=== PATIENT | female | born 1985 | race Caucasian/White ===

== ENCOUNTER 2019-12-17 19:22 | Emergency (ER) | payer OTHER ==
--- NOTE | 2019-12-17 20:43 | ED Physician Documentation ---
History of Present Illness - Stated complaint Stated Complaint: COUGH,HEAVY CHEST - Chief complaint Chief Complaint: Heent - History obtained from History obtained from: Patient (The patient is a 34-year-old female who presents with cough and chest congestion for 2 days.She denies any recent travel outside the country and she denies any history of chronic medical illness denies any immunodeficiency she tried taking Mucinex once today but presents today with cough and fever she has not taken any Tylenol or ibuprofen prior to arrival.She denies any chest pain, headaches, neck pain or rashes.) Review of Systems Constitutional: reports: Fever Eyes: reports: Reviewed and negative Ears: reports: Reviewed and negative Nose: reports: Reviewed and negative Throat: reports: Reviewed and negative Cardiac: reports: Reviewed and negative Respiratory: reports: Cough GI: reports: Reviewed and negative : reports: Reviewed and negative Skin: reports: Reviewed and negative Musculoskeletal: reports: Reviewed and negative Neurologic: reports: Reviewed and negative Psychiatric: reports: Reviewed and negative Endocrine: reports: Reviewed and negative Immunocompromised: reports: Reviewed and negative PD PAST MEDICAL HISTORY - Past Medical History Past Medical History: No - Past Surgical History 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 - Present Medications Home Medications: Ambulatory Orders Medication Instructions Recorded Confirmed Azithromycin 250 mg PO DAILY 4 Days #4 tablet 12/17/19 - Allergies Allergies/Adverse Reactions: Allergies Allergy/AdvReac Type Severity Reaction Status Date / Time No Known Drug Allergies Allergy Verified 12/17/19 19:31 - Social History Does the pt smoke?: No Smoking Status: Never smoker Does the pt drink ETOH?: Yes Does the pt have substance abuse?: No - Immunizations Immunizations are current?: No PD ED PE NORMAL - Vitals Vital signs reviewed: Yes - General General: Alert and oriented X 3, No acute distress - HEENT HEENT: Atraumatic, PERRL, EOMI, Ears normal, Moist mucous membranes, Pharynx benign, Dentition benign - Neck Neck: Supple, no meningeal sign, No JVD - Cardiac Cardiac: RRR, No murmur, Strong equal pulses - Respiratory Respiratory: No respiratory distress, Clear bilaterally, Other (coughing but no resp distress) - Abdomen Abdomen: Normal bowel sounds, Soft, Non tender, Non distended, No organomegaly - Back Back: No CVA TTP - Derm Derm: Normal color, Warm and dry, No rash - Extremities Extremities: No deformity - Neuro Neuro: Alert and oriented X 3 - Psych Psych: Normal mood, Normal affect Results - Vitals Vitals: Vital Signs - 24 hr 12/17/19 12/17/19 12/17/19 19:31 21:17 21:18 Temperature 38.0 C H Heart Rate 130 H 90 124 H Respiratory 16 20 20 Rate Blood Pressure 140/90 H 129/84 H O2 Saturation 92 94 Oxygen O2 Source Room air - Labs Labs: Laboratory Tests 12/17/19 12/17/19 21:12 21:12 Influenza A (Rapid) Negative Influenza B (Rapid) Negative Group A Strep Rapid Negative PD MEDICAL DECISION MAKING - ED course Complexity details: re-evaluated patient (patient feels better And is requesting to be discharged home patient updated on results of imaging, patient will be treated with azithromycin For pneumonia.), other (Patient presents with flulike illness, no recent travel outside the country she is nontoxic and nonseptic appearing on exam patient is refusingAny intravenous fluids.The patient will be given a treatment with albuterol, a two-view chest x-ray oral Tylenol and p.o. challenge and reevaluated.) Departure - Departure Disposition: 01 Home, Self Care Clinical Impression: Fever Qualifiers: Fever type: unspecified Qualified Code(s): R50.9 - Fever, unspecified Pneumonia Qualifiers: Pneumonia type: due to unspecified organism Laterality: unspecified laterality Lung location: unspecified part of lung Qualified Code(s): J18.9 - Pneumonia, unspecified organism Condition: Good Instructions: Pneumonia Dc Follow-Up: Rd Martin ARNP [Primary Care Provider] - Tomorrow Prescriptions: Azithromycin 250 mg PO DAILY 4 Days #4 tablet Discharge Date/Time: 12/17/19 21:46
[2019-12-17] MEDS ORDERED: ACETAMINOPHEN 325 MG TABLET PO STA (20:44)
[2019-12-17] MEDS ORDERED: ALBUTEROL NEB 2.5 MG/3 ML INH STA (20:52)
[2019-12-17 21:19] VITALS: BP 129/84
[2019-12-17 21:31] LABS: RAPID STREP SCREEN Negative (Negative)
--- NOTE | 2019-12-17 21:33 | XRAY Report ---
Reason: cough Procedure Date: 12/17/2019 Accession Number: [id number] / [id number] Procedure: XR - Chest 2 View X-Ray CPT Code: 38449 Final Report FULL RESULT: EXAM: CHEST RADIOGRAPHY EXAM DATE: 12/17/2019 09:07 PM. CLINICAL HISTORY: Cough. COMPARISON: None. TECHNIQUE: 2 views. FINDINGS: Lungs/Pleura: Hazy left lower lung zone opacity. No pleural effusion. No pneumothorax. Mediastinum: Heart and mediastinal contours are unremarkable. Other: None. IMPRESSION: Hazy left lower lung zone opacity. Atypical infection not excluded. RADIA
[2019-12-17] MEDS ORDERED: AZITHROMYCIN 250 MG TABLET PO STA (21:39)
== END 2019-12-17 21:46 | disposition home or self-care (01) ==
LOC: ED 19:22
DX: J18.9 Pneumonia, unspecified organism (principal)
CPT/HCPCS: 71046; 87070; 87275; 87276; 87430; 94640; 99284; A9270

== ENCOUNTER 2020-12-28 13:06 | Emergency (ER) | payer OTHER ==
--- NOTE | 2020-12-28 13:28 | ED Physician Documentation ---
History of Present Illness - Stated complaint Stated Complaint: FEMALE - Chief complaint Chief Complaint: UTI - Additonal information Additional information: 35-year-old female presents to the emergency department for dysuria urgency and frequency. Also some hematuria that she notices this morning. She also reports some vaginal discharge and has concerns that she may have a STD. She reports that her was on a business trip recently and admitted to infidelity and he has been having some genital discomfort as well. No flank pain or vomiting. Patient would like to know she has a urinary tract infection but would like to b e empirically treated for STI while here in the emergency department. 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 - Present Medications Home Medications: Ambulatory Orders Medication Instructions Recorded Confirmed Dextroamphetamine/Amphetamine 20 mg PO DAILY 12/28/20 12/28/20 [Adderall Xr 20 mg Capsule] Loratadine [Claritin] 10 mg PO DAILY 12/28/20 12/28/20 - Allergies Allergies/Adverse Reactions: Allergies Allergy/AdvReac Type Severity Reaction Status Date / Time No Known Drug Allergies Allergy Verified 12/28/20 13:15 - Social History Does the pt smoke?: No Smoking Status: Never smoker Does the pt drink ETOH?: Yes Does the pt have substance abuse?: No - Immunizations Immunizations are current?: No PD ED PE NORMAL - General General: Alert and oriented X 3, No acute distress - HEENT HEENT: Atraumatic, Ears normal - Neck Neck: Supple, no meningeal sign, No adenopathy - Cardiac Cardiac: RRR, No murmur - Respiratory Respiratory: No respiratory distress - Abdomen Abdomen: Normal bowel sounds, Soft - Female Female : Deferred - Back Back: No CVA TTP - Derm Derm: Normal color, Warm and dry - Extremities Extremities: No deformity - Neuro Neuro: Alert and oriented X 3 Eye Opening: Spontaneous Motor: Obeys Commands Verbal: Oriented GCS Score: 15 Results - Vitals Vitals: Vital Signs - 24 hr 12/28/20 13:16 Temperature 36.7 C Heart Rate 98 Respiratory 18 Rate Blood Pressure 158/87 H O2 Saturation 100 Oxygen O2 Source Room air - Labs Labs: Microbiology 12/28/20 13:40 Wet Prep - Final Vaginal Laboratory Tests 12/28/20 12/28/20 13:42 13:42 Urine Color LIGHT YELLOW Urine Clarity CLEAR Urine pH 7.0 Ur Specific [place] 1.010 Urine Protein NEGATIVE Urine Glucose (UA) NEGATIVE Urine Ketones NEGATIVE Urine Occult Blood SMALL H Urine Nitrite NEGATIVE Urine Bilirubin NEGATIVE Urine Urobilinogen 0.2 (NORMAL) Ur Leukocyte Esterase NEGATIVE Urine RBC 6-10 H Urine WBC 0-3 Ur Squamous Epith Cells NONE SEEN Urine Bacteria None Seen Urine Culture Comments NOT INDICATED Urine HCG, Qual NEGATIVE PD MEDICAL DECISION MAKING - ED course Complexity details: re-evaluated patient, d/w patient ED course: 35-year-old female presents the emergency department for evaluation of hematuria vaginal discharge and discomfort when she urinates. She does have concerned that her partner may have recently been unfaithful when he was away for work. He is also reporting some discomfort in the groin area. Today her urine shows a small amount of hematuria but no other findings to suggest a urinary tract infection. We did do a screening GC which is pending. Wet prep shows no obvious concerns. However patient is requesting treatment for GC empirically therefore we have given her ceftriaxone and azithromycin. She is cautioned that her partner should be tested and treated before they engage in sexual intercourse again. We will do for case of oral antibiotics unless urine culture is positive. Departure - Departure Disposition: 01 Home, Self Care Clinical Impression: Screening for STD (sexually transmitted disease) Hematuria Qualifiers: Hematuria type: other microscopic Qualified Code(s): R31.29 - Other microscopic hematuria; R31.2 - Other microscopic hematuria Condition: Stable Record reviewed to determine appropriate education?: Yes Comments: Rita you were seen today for some blood in your urine as well as concerns that you may have a sexually transmitted infection. Your urine is being sent for culture though right now it does not suggest an infection though there is a small amount of blood in it. We are also testing you for chlamydia and gonorrhea but have treated you as though you could have the infection with an injection of an antibiotic as well as an oral antibiotic here in the ER. Your partner should be tested and treated for sexually transmitted disease before you engage in sexual intercourse again. We will call you if the urine culture is positive or if the STD testing is positive. We should have these results back in the next 24 to 48 hours.
[2020-12-28 13:54] LABS: BILIRUBIN,URINE NEGATIVE (NEGATIVE); GLUCOSE, URINE (UA) NEGATIVE (NEGATIVE); KETONES,URINE (UA) NEGATIVE (NEGATIVE); LEUKOCYTE ESTERASE, URINE NEGATIVE (NEGATIVE); NITRITE,URINE NEGATIVE (NEGATIVE); OCCULT BLOOD,URINE SMALL (NEGATIVE); PROTEIN,URINE NEGATIVE (NEGATIVE); UROBILINOGEN,URINE 0.2 (NORMAL) E.U./dL (NORMAL)
[2020-12-28 13:56] LABS: CLARITY,URINE CLEAR (CLEAR)
[2020-12-28 13:57] LABS: HCG UR QUAL NEGATIVE
[2020-12-28] MEDS ORDERED: cefTRIAXone 250 MG VIAL IM STA (14:10)
[2020-12-28] MEDS ORDERED: AZITHROMYCIN 250 MG TABLET PO STA (14:10)
[2020-12-28] MEDS ORDERED: LIDOCAINE 1% 2 ML VIAL MC ONE (14:10)
[2020-12-28 14:15] LABS: BACTERIA,URINE None Seen /HPF (None Seen); SQUAMOUS EPITHELIAL CELL,UR NONE SEEN (<= Few); WBC,URINE 0-3 /HPF (0-5)
[2020-12-28 15:00] VITALS: BP 151/98
[2020-12-28 20:47] LABS: CHLAMYDIA TRACHOMATIS DNA NEGATIVE (NEGATIVE); NEISSERIA GONORRHOEAE DNA NEGATIVE (NEGATIVE); TRICHOMONAS VAGINALIS DNA NEGATIVE (NEGATIVE)
== END 2020-12-28 15:00 | disposition home or self-care (01) ==
LOC: ED 13:06
DX: Z11.3 Encounter for screening for infections with a predominantly sexual mode of transmission (principal); N89.8 Other specified noninflammatory disorders of vagina; R31.9 Hematuria, unspecified
CPT/HCPCS: 81001; 81025; 87210; 87491; 87591; 87661; 96372; 99283; 99284; A9270; 87086

== ENCOUNTER 2020-12-30 10:58 | Emergency (ER) | payer OTHER ==
[2020-12-30 11:16] LABS: BILIRUBIN,URINE NEGATIVE (NEGATIVE); GLUCOSE, URINE (UA) NEGATIVE (NEGATIVE); KETONES,URINE (UA) NEGATIVE (NEGATIVE); LEUKOCYTE ESTERASE, URINE TRACE (NEGATIVE); NITRITE,URINE NEGATIVE (NEGATIVE); OCCULT BLOOD,URINE MODERATE (NEGATIVE); PROTEIN,URINE NEGATIVE (NEGATIVE); UROBILINOGEN,URINE 0.2 (NORMAL) E.U./dL (NORMAL)
[2020-12-30 11:17] LABS: CLARITY,URINE HAZY (CLEAR); HCG UR QUAL NEGATIVE
[2020-12-30 11:22] LABS: BACTERIA,URINE Rare /HPF (None Seen); SQUAMOUS EPITHELIAL CELL,UR MOD Squamous (<= Few)
[2020-12-30 11:32] LABS: BASOPHILS % (AUTO) 0.5 %; EOSINOPHILS # (AUTO) 0.2 10^3/uL (0.0-0.7); EOSINOPHILS % (AUTO) 3.1 %; HCT - HEMATOCRIT 42.4 % (37.0-47.0); HGB - HEMOGLOBIN 14.3 g/dL (12.0-16.0); LYMPHOCYTES # (AUTO) 2.1 10^3/uL (1.5-3.5); LYMPHOCYTES % (AUTO) 27.5 %; MEAN CORPUSCULAR HEMOGLOBIN 30.2 pg (27.0-31.0); MEAN CORPUSCULAR HGB CONC 33.7 g/dL (32.0-36.0); MEAN CORPUSCULAR VOLUME 89.5 fL (81.0-99.0); MEAN PLATELET VOLUME 9.8 fL (7.9-10.8); MONOCYTES # (AUTO) 0.5 10^3/uL (0.0-1.0); MONOCYTES % (AUTO) 6.2 %; NEUTROPHILS # (AUTO) 4.8 10^3/uL (1.5-6.6); NEUTROPHILS % (AUTO) 62.3 %; PLT - PLATELET COUNT 336 10^3/uL (130-450); RED BLOOD COUNT 4.74 10^6/uL (4.20-5.40); RED CELL DISTRIBUTION WIDTH 11.9 % (12.0-15.0); WHITE BLOOD COUNT 7.8 x10^3/uL (4.8-10.8)
[2020-12-30 11:49] LABS: ALBUMIN 4.2 g/dL (3.2-5.5); ALBUMIN/GLOBULIN RATIO 1.3 (1.0-2.2); BILIRUBIN,TOTAL 0.6 mg/dL (0.2-1.0); CALCIUM 9.4 mg/dL (8.5-10.3); CREATININE 0.6 mg/dL (0.4-1.0); TOTAL PROTEIN 7.5 g/dL (6.7-8.2)
[2020-12-30] MEDS ORDERED: SODIUM CHLORIDE 0.9% 1,000 ML IV STA (13:05)
[2020-12-30] MEDS ORDERED: IOVERSOL 320 100 ML VIAL IVP ONE ×2 (13:10→13:56)
--- NOTE | 2020-12-30 13:57 | CT Report ---
PROCEDURE: Abdomen/Pelvis W INDICATIONS: Bilateral lower quadrant abdominal pain and flank pain; hematuria TECHNIQUE: After the administration of intravenous contrast, 5 mm thick sections acquired from the diaphragms to the symphysis. 2.5 mm thick coronal and sagittal reformats were acquired. Optional 10-minute delay ed imaging may be performed from the kidneys to the bladder. For radiation dose reduction, the follo wing was used: automated exposure control, adjustment of mA and/or kV according to patient size. COMPARISON: None FINDINGS: Image quality: Excellent. ABDOMEN: Lung bases: Lung bases are clear. Heart size is normal. No pericardial effusion. Inferior ribs ar e intact. No basal pleural effusions or pneumothorax. Urinary tract: No tract calculus. No hydroureteronephrosis or perinephric fat stranding. Normal appea jody of the ureters and urinary bladder. Remaining solid abdominal viscera: Liver is normal in size and enhancement, without lacerations. Gall bladder is normally distended and contains contains several calcified gallstones measuring approximat purvi 7-8 mm. There is no gallbladder wall thickening or adjacent inflammatory change. Biliary system i s non-dilated. Pancreas enhances normally, without transection. Spleen is normal in size and enhanc ement, without lacerations. No adrenal hematomas. Peritoneum and bowel: No free fluid or air. Unenhanced bowel loops demonstrate normal wall thicknes s and caliber. Nodes and vessels: No retroperitoneal or mesenteric adenopathy. Aorta and inferior vena cava are no rmal in size and enhancement. Miscellaneous: No ventral hernias. PELVIS: Genitourinary: Bladder wall thickness is normal. Small volume free pelvic fluid. Peripherally enhan cing left ovarian cyst with approximately 3 mm wall thickness. The right ovary is unremarkable. Miscellaneous: No inguinal hernias or adenopathy. Bones: Pelvic ring and hip joints appear intact. No vertebral compression fractures. IMPRESSION: No urinary tract calculus, hydroureteronephrosis, or other acute finding of the urinary tract. Peripherally enhancing left ovarian cyst is likely a resolving hemorrhagic cyst. Small volume free fl uid in the pelvis may be related. Cholelithiasis. Reviewed by: Wes Blakely MD on 12/30/2020 1:56 PM PDT Approved by: Wes Blakely MD on 12/30/2020 1:56 PM PDT Station ID: [id number]
--- NOTE | 2020-12-30 14:37 | ED Physician Documentation ---
History of Present Illness - Stated complaint Stated Complaint: FEMALE - Chief complaint Chief Complaint: Abd Pain - History obtained from History obtained from: Patient - Additonal information Additional information: Usually does radiate to [id number] woman presents with hematuria and dysuria over the past couple days that has progressively worsened despite antibiotic treatment in the emergency department for sexually transmitted infection a couple days ago. Patient is also endorsing bilateral lower quadrant aching constant gradual onset abdominal pain that is nonradiating the bilateral back on the left side worse than the right. Denies fever, nausea vomiting, diarrhea, constipation or rash. Denies vaginal discharge, lesions in the vaginal area. Review of Systems Ten Systems: 10 systems reviewed and negative Constitutional: denies: Fever Cardiac: denies: Chest pain / pressure Respiratory: denies: Dyspnea GI: reports: Abdominal Pain. 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 - Present Medications Home Medications: Ambulatory Orders Medication Instructions Recorded Confirmed Dextroamphetamine/Amphetamine 20 mg PO DAILY 12/28/20 12/28/20 [Adderall Xr 20 mg Capsule] Loratadine [Claritin] 10 mg PO DAILY 12/28/20 12/28/20 cephALEXin [Keflex] 500 mg PO BID #20 tab 12/30/20 - Allergies Allergies/Adverse Reactions: Allergies Allergy/AdvReac Type Severity Reaction Status Date / Time No Known Drug Allergies Allergy Verified 12/30/20 11:06 - Social History Does the pt smoke?: No Smoking Status: Never smoker Does the pt drink ETOH?: Yes Does the pt have substance abuse?: No - Immunizations Immunizations are current?: No PD ED PE NORMAL - Vitals Vital signs reviewed: Yes - General General: Alert and oriented X 3, No acute distress, Well developed/nourished - HEENT HEENT: Atraumatic, PERRL, EOMI - Neck Neck: Supple, no meningeal sign - Cardiac Cardiac: RRR - Respiratory Respiratory: No respiratory distress, Clear bilaterally - Abdomen Abdomen: Non tender, Non distended, Other (discomfort to palpation in LLQ) - Female Female : Deferred - Rectal Rectal: Deferred - Back Back: No CVA TTP, Other (discomfort with palpation of L CVA) - Derm Derm: Normal color - Extremities Extremities: No deformity - Neuro Neuro: Alert and oriented X 3 - Psych Psych: Normal mood, Normal affect Results - Vitals Vitals: Vital Signs - 24 hr 12/30/20 11:01 Temperature 36.4 C L Heart Rate 86 Respiratory 15 Rate Blood Pressure 143/84 H O2 Saturation 99 Oxygen O2 Source Room air - Labs Labs: Laboratory Tests 12/30/20 12/30/20 12/30/20 11:09 11:25 11:25 WBC 7.8 RBC 4.74 Hgb 14.3 Hct 42.4 MCV 89.5 MCH 30.2 MCHC 33.7 RDW 11.9 L Plt Count 336 MPV 9.8 Neut # (Auto) 4.8 Lymph # (Auto) 2.1 [place] # (Auto) 0.5 Eos # (Auto) 0.2 Baso # (Auto) 0.0 Absolute Nucleated RBC 0.00 Nucleated RBC % 0.0 Sodium 138 Potassium 4.0 Chloride 108 Carbon Dioxide 24 Anion Gap 6.0 BUN 17 Creatinine 0.6 Estimated GFR (MDRD) 114 Glucose 85 Calcium 9.4 Total Bilirubin 0.6 AST 17 ALT 25 Alkaline Phosphatase 64 Total Protein 7.5 Albumin 4.2 Globulin 3.3 Albumin/Globulin Ratio 1.3 Lipase 28 Urine Color YELLOW Urine Clarity HAZY Urine pH 7.0 Ur Specific [place] 1.015 Urine Protein NEGATIVE Urine Glucose (UA) NEGATIVE Urine Ketones NEGATIVE Urine Occult Blood MODERATE H Urine Nitrite NEGATIVE Urine Bilirubin NEGATIVE Urine Urobilinogen 0.2 (NORMAL) Ur Leukocyte Esterase TRACE H Urine RBC 11-25 H Urine WBC 6-10 H Ur Squamous Epith Cells MOD Squamous H Urine Bacteria Rare Ur Microscopic Review INDICATED Urine Culture Comments NOT INDICATED Urine HCG, Qual NEGATIVE PD MEDICAL DECISION MAKING - ED course Complexity details: reviewed results, d/w patient ED course: Patient 35-year-old woman presents with dysuria and hematuria concerning for urinary tract infection as well as left hemorrhagic cyst with free fluid in the pelvis on CT that may be reflective of her abdominal pain. Planning to treat with antibiotics and have her follow-up outpatient. She also has gallstones on CT and will f/u with Dr. Otoole, gen surgery. strict return precautions given. Departure - Departure Disposition: 01 Home, Self Care Clinical Impression: UTI (urinary tract infection), Hemorrhagic cyst of left ovary, Gallstones Condition: Good Instructions: ED UTI Cystitis Female Follow-Up: Nikolai Otoole MD [Provider Admit Priv/Credential] - Prescriptions: cephALEXin [Keflex] 500 mg PO BID #20 tab Comments: You were seen in the emergency department for urinary symptoms including pain with urination and blood in your urine. Your CAT scan showed a left-sided cyst on your ovary and some fluid in your abdomen, meaning that the cyst may be leaking causing irritation in the abdomen. Your urinalysis showed a possible urinary tract infection and I am going to treat it with antibiotics. You should continue for the full course and return to the emergency department if you develop any new fever, worsening symptoms or have other concerns. Follow-up with your primary doctor this week. You also have gallstones on CT. If they are not bothering you then nothing needs to be done. If they start to bother you then you can have it taken out. Dr. Otoole is one of our surgeons that does gallbladder surgery.
[2020-12-30 14:51] VITALS: BP 112/78
== END 2020-12-30 14:56 | disposition home or self-care (01) ==
LOC: ED 10:58
DX: N39.0 Urinary tract infection, site not specified (principal); R31.9 Hematuria, unspecified; N83.202 Unspecified ovarian cyst, left side; K80.20 Calculus of gallbladder without cholecystitis without obstruction
CPT/HCPCS: 36415; 74177; 80053; 81001; 81025; 83690; 85025; 99284; Q9967; 81003; 87086

== ENCOUNTER 2021-05-01 15:48 | Emergency (ER) | payer OTHER ==
[2021-05-01 16:50] LABS: BASOPHILS % (AUTO) 0.3 %; EOSINOPHILS # (AUTO) 0.1 10^3/uL (0.0-0.7); EOSINOPHILS % (AUTO) 1.4 %; HCT - HEMATOCRIT 41.9 % (37.0-47.0); HGB - HEMOGLOBIN 14.5 g/dL (12.0-16.0); LYMPHOCYTES # (AUTO) 2.2 10^3/uL (1.5-3.5); LYMPHOCYTES % (AUTO) 30.4 %; MEAN CORPUSCULAR HEMOGLOBIN 30.2 pg (27.0-31.0); MEAN CORPUSCULAR HGB CONC 34.6 g/dL (32.0-36.0); MEAN CORPUSCULAR VOLUME 87.3 fL (81.0-99.0); MEAN PLATELET VOLUME 9.8 fL (7.9-10.8); MONOCYTES # (AUTO) 0.4 10^3/uL (0.0-1.0); NEUTROPHILS # (AUTO) 4.6 10^3/uL (1.5-6.6); NEUTROPHILS % (AUTO) 62.8 %; PLT - PLATELET COUNT 329 10^3/uL (130-450); RED CELL DISTRIBUTION WIDTH 11.9 % (12.0-15.0); WHITE BLOOD COUNT 7.4 x10^3/uL (4.8-10.8)
[2021-05-01 16:51] LABS: CARBOXYHEMOGLOBIN VENOUS 0.6 % (0-1.5); HEMOGLOBIN TOTAL, VENOUS WB 14.9 g/dL (12.0-18.0)
[2021-05-01 16:52] LABS: METHEMOGLOBIN VENOUS 0.4 % (0-1.5); VBG PCO2 32.1 mmHg (41-51); VBG PH 7.43 (7.31-7.41)
[2021-05-01 16:54] LABS: VBG BASE EXCESS -2.5 mmol/L (-2 - +2); VBG HCO3 20.8 mmol/L (23-28); VBG PO2 107.3 mmHg (25-47); VBG TOTAL CO2 21.8 mmol/L (24-29)
[2021-05-01 17:02] LABS: ALBUMIN 4.2 g/dL (3.2-5.5); ALBUMIN/GLOBULIN RATIO 1.4 (1.0-2.2); BILIRUBIN,TOTAL 0.7 mg/dL (0.2-1.0); CALCIUM 9.1 mg/dL (8.5-10.3); CREATININE 0.6 mg/dL (0.4-1.0); POTASSIUM 3.5 mmol/L (3.5-5.0); TOTAL PROTEIN 7.3 g/dL (6.7-8.2)
--- NOTE | 2021-05-01 17:38 | ED Physician Documentation ---
PD HPI FOCAL NEURO - Stated complaint Stated Complaint: R SIDE NUMBNESS - Chief complaint Chief Complaint: Neuro - History obtained from History obtained from: Patient - Additional information Additional information: Previously healthy 35-year-old woman has had 3 weeks worth of intermittent vertigo, worse when she tilts her head back. Is not associated with headaches. Today during the course of the day she is noted progressive numbness starting in the right hand, up the right arm, now involving the right side of the face and leg. No weakness. No headache. No history of stroke or family history of stroke. 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 - Present Medications Home Medications: Ambulatory Orders Medication Instructions Recorded Confirmed Dextroamphetamine/Amphetamine 20 mg PO DAILY 12/28/20 05/01/21 [Adderall Xr 20 mg Capsule] Loratadine [Claritin] 10 mg PO DAILY 12/28/20 05/01/21 Nitrofurantoin Macrocrystal 100 mg PO BID 05/01/21 05/01/21 [Macrodantin] Phenazopyridine HCl [Pyridium] 200 mg PO TID 05/01/21 05/01/21 - Allergies Allergies/Adverse Reactions: Allergies Allergy/AdvReac Type Severity Reaction Status Date / Time No Known Drug Allergies Allergy Verified 05/01/21 15:55 - Social History Does the pt smoke?: No Smoking Status: Never smoker Does the pt drink ETOH?: Yes Does the pt have substance abuse?: No - Immunizations Immunizations are current?: No PD ED PE NORMAL - Vitals Vital signs reviewed: Yes - General General: Alert and oriented X 3, No acute distress - HEENT HEENT: PERRL, EOMI - Neck Neck: Supple, no meningeal sign, No bony TTP - Cardiac Cardiac: RRR, No murmur - Respiratory Respiratory: No respiratory distress, Clear bilaterally - Abdomen Abdomen: Normal bowel sounds, Soft, Non tender - Back Back: No CVA TTP, No spinal TTP - Derm Derm: Normal color, Warm and dry - Extremities Extremities: No edema, No calf tenderness / cord - Neuro Neuro: Alert and oriented X 3, Normal speech NIHSS - Time Time: 17:25 - Level of Consciousness Level of consciousness: (0) Alert, Keenly responsive LOC Questions: (0) Answers both Q's correct LOC Commands: (0) Performs both correctly - Gaze Best Gaze: (0) Normal - Visual Visual: (0) No loss - Facial Palsy Facial Palsy: (0) Normal, symmetrical movement - Motor Arms (both separate) Motor Arm (right): (0) No drift Motor Arm (left): (0) No drift - Motor Legs (both separate) Motor Leg (right): (0) No drift Motor Leg (left): (0) No drift - Limb Ataxia Limb Ataxia: (0) Absent - Sensory Sensory: (0) Normal - Best Language Best Language: (0) No aphasia - Dysarthria Dysarthria: (0) Normal - Extinction and Inattention (formally neg Extinction and inattention: (0) No abnormality - Total Score/Results Total Score/Result: 0 Results - Vitals Vitals: Vital Signs - 24 hr 05/01/21 05/01/21 15:55 18:00 Temperature 36.5 C 36.6 C Heart Rate 88 93 Respiratory 16 16 Rate Blood Pressure 144/80 H 126/86 H O2 Saturation 98 99 Oxygen O2 Source Room air - Labs Labs: Laboratory Tests 05/01/21 05/01/21 05/01/21 16:44 16:44 16:44 WBC 7.4 RBC 4.80 Hgb 14.5 Hct 41.9 MCV 87.3 MCH 30.2 MCHC 34.6 RDW 11.9 L Plt Count 329 MPV 9.8 Neut # (Auto) 4.6 Lymph # (Auto) 2.2 [place] # (Auto) 0.4 Eos # (Auto) 0.1 Baso # (Auto) 0.0 Absolute Nucleated RBC 0.00 Nucleated RBC % 0.0 VBG pH VBG pCO2 VBG pO2 VBG HCO3 VBG Total CO2 VBG O2 Saturation VBG Base Excess VBG Total Hgb 14.9 VBG Oxyhemoglobin 97 VBG Carboxyhemoglobin 0.6 VBG Methemoglobin 0.4 Sodium 138 Potassium 3.5 Chloride 106 Carbon Dioxide 24 Anion Gap 8.0 BUN 10 Creatinine 0.6 Estimated GFR (MDRD) 114 Glucose 107 H Calcium 9.1 Total Bilirubin 0.7 AST 18 ALT 32 Alkaline Phosphatase 58 Total Protein 7.3 Albumin 4.2 Globulin 3.1 Albumin/Globulin Ratio 1.4 Lipase 25 Urine Color Urine Clarity Urine pH Ur Specific Hansen Urine Protein Urine Glucose (UA) Urine Ketones Urine Occult Blood Urine Nitrite Urine Bilirubin Urine Urobilinogen Ur Leukocyte Esterase Urine RBC Urine WBC Ur Squamous Epith Cells Urine Bacteria Ur Microscopic Review Urine Culture Comments Urine HCG, Qual 05/01/21 05/01/21 16:44 18:04 WBC RBC Hgb Hct MCV MCH MCHC RDW Plt Count MPV Neut # (Auto) Lymph # (Auto) [place] # (Auto) Eos # (Auto) Baso # (Auto) Absolute Nucleated RBC Nucleated RBC % VBG pH 7.430 H VBG pCO2 32.1 L VBG pO2 107.3 H VBG HCO3 20.8 L VBG Total CO2 21.8 L VBG O2 Saturation 98.0 H VBG Base Excess -2.5 L VBG Total Hgb VBG Oxyhemoglobin VBG Carboxyhemoglobin VBG Methemoglobin Sodium Potassium Chloride Carbon Dioxide Anion Gap BUN Creatinine Estimated GFR (MDRD) Glucose Calcium Total Bilirubin AST ALT Alkaline Phosphatase Total Protein Albumin Globulin Albumin/Globulin Ratio Lipase Urine Color ORANGE Urine Clarity HAZY Urine pH 5.0 Ur Specific Hansen 1.020 Urine Protein Urine Glucose (UA) Urine Ketones NEGATIVE Urine Occult Blood NEGATIVE Urine Nitrite Urine Bilirubin COLOR INTERFERENCE Urine Urobilinogen Ur Leukocyte Esterase Urine RBC None Seen Urine WBC 0-3 Ur Squamous Epith Cells RARE Squamous Urine Bacteria Few Ur Microscopic Review INDICATED Urine Culture Comments NOT INDICATED Urine HCG, Qual NEGATIVE - Rads (name of study) CT angio head/neck Radiology: EMP read contemporaneously (normal) PD MEDICAL DECISION MAKING - ED course ED course: 35-year-old woman with numbness of the left side but no corresponding findings on stroke exam. Also 3 weeks of vertigo. Given the acuity and time course as well as lack of exam findings she is not a TPA candidate CT angiography of the head and neck were done without abnormalities. Discussed with her that given her symptoms MR would be more sensitive for brainstem or cerebellar lesions. Offered transfer to tertiary facility for MRI tonight but she prefers to return tomorrow on a weekday when the MRI is running here. Departure - Departure Disposition: 01 Home, Self Care Clinical Impression: Right sided numbness, Vertigo Condition: Good Record reviewed to determine appropriate education?: Yes Instructions: ED Vertigo Unspecified Comments: Return tomorrow morning approximately 8 AM for reevaluation and potentially an MRI. You may want to leave your piercings at home as they will need to come out for the MRI. Recommend wearing loose fitting clothing without any metal including snaps or buttons.
[2021-05-01] MEDS ORDERED: IOPAMIDOL-300 100 ML VIAL ONE (17:44)
[2021-05-01 18:12] LABS: KETONES,URINE (UA) NEGATIVE (NEGATIVE); OCCULT BLOOD,URINE NEGATIVE (NEGATIVE)
[2021-05-01 18:13] LABS: CLARITY,URINE HAZY (CLEAR)
[2021-05-01 18:15] LABS: BILIRUBIN,URINE COLOR INTERFERENCE (NEGATIVE)
[2021-05-01 18:16] LABS: HCG UR QUAL NEGATIVE
[2021-05-01 18:31] LABS: BACTERIA,URINE Few /HPF (None Seen); RBC,URINE None Seen /HPF (0-5); SQUAMOUS EPITHELIAL CELL,UR RARE Squamous (<= Few); WBC,URINE 0-3 /HPF (0-5)
[2021-05-01] MEDS ORDERED: IOPAMIDOL-300 100 ML VIAL IVP ONE (19:04)
--- NOTE | 2021-05-01 19:22 | CT Report ---
PROCEDURE: ANGIO HEAD W/WO INDICATIONS: stroke like sx CONTRAST: IV CONTRAST: Isovue 300 ml: 100 PO CONTRAST: *NO PO CONTRAST TECHNIQUE: Precontrast 4.5 mm thick angled axial sections acquired from the foramen magnum to the vertex. Afte r the administration of intravenous contrast, 1 mm thick sections acquired through the [place] is. Postcontrast 4.5 mm thick sections then re-acquired from the foramen magnum to the vertex. 3-di mensional kfkswpi-fjhoaftka-fduuykjbfz (MIP) and/or volume rendering reformats were acquired of the c entral intracranial vasculature. For radiation dose reduction, the following was used: automated ex posure control, adjustment of mA and/or kV according to patient size. COMPARISON: FINDINGS: Image quality: Excellent. Anterior circulation: Intracranial internal carotid arteries are normal in size and flow. The flow within the paired anterior cerebral arteries is normal and symmetric. The flow within the middle cer ebral arteries is normal and symmetric. The anterior communicating artery is seen. No aneurysms are seen. Posterior circulation: Visualized portions of the vertebral arteries demonstrate normal caliber, and join to form a normal appearing basilar artery. Flow within the posterior cerebral arteries is norm al and symmetric. No aneurysms are seen. CSF spaces: Ventricles are normal in size and shape. Basal cisterns are patent. No extra-axial flu id collections. Brain: No midline shift. No intracranial bleeds or masses. Hernández-white matter interface appears int act. Skull and face: Calvarium and facial bones appear intact, without suspicious lesions. Sinuses: Visualized sinuses and mastoids are clear. IMPRESSION: No abnormalities found. MR follow-up may be warranted to accurately detected small focus of diffusion imaging abnormality. No aneurysm or embolic disease is found. Reviewed by: Jairo Montague MD on 05/01/2021 7:21 PM PDT Approved by: Jairo Montague MD on 05/01/2021 7:21 PM PDT Station ID: [id number]
--- NOTE | 2021-05-01 19:23 | CT Report ---
PROCEDURE: ANGIO NECK W INDICATIONS: stroke like sx CONTRAST: IV CONTRAST: Isovue 300 ml: 100 PO CONTRAST: *NO PO CONTRAST TECHNIQUE: After the administration of intravenous contrast, 1.5 mm axial sections acquired from the aortic arch to the [place] of [place]. Coronal 3-D maximum intensity projection (MIP) and/or volume rendering ref ormats were then performed. For radiation dose reduction, the following was used: automated exposur e control, adjustment of mA and/or kV according to patient size. COMPARISON: None. FINDINGS: Image quality: Excellent. Carotid system: The great vessels demonstrate a conventional anatomy as they arise from the aortic a rc. The origins of the common carotid arteries appear patent. The common carotid arteries demonstr ate normal calibers and courses. The bifurcation regions appear normal bilaterally. The internal ca rotid arteries demonstrate normal caliber and course. Posterior circulation: The origins of the vertebral arteries appear patent. The more superior porti ons of the vertebral arteries demonstrate normal course and caliber. They join to form a normal appe aring basilar artery. Soft tissues: Visualized neck soft tissues demonstrate no suspicious abnormalities. The thyroid is normal in size and there are no incidental findings. Bones: No suspicious bony lesions. Visualized cervical spine appears normally aligned. IMPRESSION: Normal cervical MR angiogram. The estimate of stenosis included in the report of the imaging study was calculated using the NASCET method CLINICAL RECOMMENDATION STATEMENTS: In patients <35 years with an ITN detected on CT, MRI, or extrathyroidal ultrasound, the Committee re commends further evaluation with dedicated thyroid ultrasound if the nodule is ?1 cm and has no suspi cious imaging features, and if the patient has normal life expectancy. In patients ?35 years with an ITN detected on CT, MRI, or extrathyroidal ultrasound, the Committee re commends further evaluation with dedicated thyroid ultrasound if the nodule is ?1.5 cm and has no connie picious imaging features, and if the patient has normal life expectancy. (ACR, 2014) Reviewed by: Jairo Montague MD on 05/01/2021 7:22 PM PDT Approved by: Jairo Montague MD on 05/01/2021 7:22 PM PDT Station ID: [id number]
[2021-05-01 19:42] VITALS: BP 124/82
== END 2021-05-01 19:42 | disposition home or self-care (01) ==
LOC: ED 15:48
DX: R20.0 Anesthesia of skin (principal); R42 Dizziness and giddiness
CPT/HCPCS: 36415; 70496; 70498; 80053; 81001; 81025; 82375; 82803; 83690; 85025; 99284; Q9967; 81003; 87086

== ENCOUNTER 2021-05-02 08:52 | Emergency (ER) | payer OTHER ==
[2021-05-02] MEDS ORDERED: ACETAMINOPHEN 325 MG TABLET PO STA ×2 (09:42→13:16)
[2021-05-02] MEDS ORDERED: KETOROLAC 30 MG/ML VIAL IM STA (09:42)
--- NOTE | 2021-05-02 09:45 | ED Physician Documentation ---
History of Present Illness - Stated complaint Stated Complaint: RT SIDE NUMBNESS - Chief complaint Chief Complaint: Neuro - History obtained from History obtained from: Patient - Additonal information Additional information: Patient returns to the ED for vertigo x1 month and right-sided numbness. She was seen yesterday and evaluated with CT angiogram which was negative. However, given the history of vertigo and the unilateral numbness, there was concern for potential brainstem or cerebellar mass, and so patient was offered either transfer for MRI or return to the emergency department today when MRI is actually available. Patient states that her symptoms are slightly better and that her face is a little less numb than it was yesterday. She states that it is not that she has completely lost sensation but just that she feels that the sensation is a little muffled in her right face arm and leg. She states it is mostly her forearm and hand and fingers and not some at her upper arm, and si milarly, she mostly has the numb sensation in her ankle, foot, and toes on the right. She denies any weakness. She is not currently experiencing vertigo. She does have a right-sided headache today but no nausea. The patient states she has been doing some weight training and has been fairly gradual about ramping up her weights, but she wonders if she may have some nerve compression from this. No distinct injury otherwise. No other complaints at this time. Review of Systems Ten Systems: 10 systems reviewed and negative Constitutional: reports: Reviewed and negative Eyes: reports: Reviewed and negative Ears: reports: Reviewed and negative Nose: reports: Reviewed and negative Throat: reports: Reviewed and negative Cardiac: reports: Reviewed and negative Respiratory: reports: Reviewed and negative GI: reports: Reviewed and negative : reports: Reviewed and negative Skin: reports: Reviewed and negative Musculoskeletal: reports: Reviewed and negative Neurologic: reports: Numbness Psychiatric: reports: Reviewed and negative Endocrine: reports: Reviewed and negative Immunocompromised: reports: Reviewed and negative PD PAST MEDICAL HISTORY - Past Surgical History 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 - Present Medications Home Medications: Ambulatory Orders Medication Instructions Recorded Confirmed Dextroamphetamine/Amphetamine 20 mg PO DAILY 12/28/20 05/01/21 [Adderall Xr 20 mg Capsule] Loratadine [Claritin] 10 mg PO DAILY 12/28/20 05/01/21 Nitrofurantoin Macrocrystal 100 mg PO BID 05/01/21 05/01/21 [Macrodantin] Phenazopyridine HCl [Pyridium] 200 mg PO TID 05/01/21 05/01/21 - Allergies Allergies/Adverse Reactions: Allergies Allergy/AdvReac Type Severity Reaction Status Date / Time No Known Drug Allergies Allergy Verified 05/02/21 09:04 - Social History Does the pt smoke?: No Smoking Status: Never smoker Does the pt drink ETOH?: Yes Does the pt have substance abuse?: No - Immunizations Immunizations are current?: No PD ED PE NORMAL - Vitals Vital signs reviewed: Yes - General General: Alert and oriented X 3, No acute distress, Well developed/nourished - HEENT HEENT: Atraumatic, PERRL, EOMI, Moist mucous membranes - Neck Neck: Supple, no meningeal sign, Other (Mild tenderness and tightness of musculature of right neck.) - Cardiac Cardiac: RRR, No murmur, Strong equal pulses - Respiratory Respiratory: No respiratory distress, Clear bilaterally - Abdomen Abdomen: Soft, Non tender, Non distended - Back Back: No spinal TTP - Derm Derm: Normal color, Warm and dry, No rash - Extremities Extremities: No deformity, No edema, No calf tenderness / cord - Neuro Neuro: Alert and oriented X 3, mail messenger 2-12 intact, Normal speech, Other (Slight decreased sensation on right face, upper, and lower extremity to soft touch, though patient does have sensation. No motor weakness.) - Psych Psych: Normal mood, Normal affect Results - Vitals Vitals: Vital Signs - 24 hr 05/02/21 05/02/21 05/02/21 08:59 10:06 11:12 Temperature 36.1 C L 36.8 C 36.7 C Heart Rate 99 92 88 Respiratory 16 16 16 Rate Blood Pressure 143/85 H 145/74 H 145/78 H O2 Saturation 100 96 95 05/02/21 13:00 Temperature 36.5 C Heart Rate 94 Respiratory 16 Rate Blood Pressure 128/75 O2 Saturation 97 Oxygen O2 Source Room air - Rads (name of study) MRI brain Radiology: Final report received, EMP read indepedently, See rad report (nad) PD MEDICAL DECISION MAKING - ED course Complexity details: reviewed old records, reviewed results, re-evaluated patient, considered differential, d/w patient ED course: Patient was given Tylenol and Toradol for her headache and MRI was ordered. MR was obtained and negative. Discussed symptomatic management with the patient and the need for follow-up. Departure - Departure Disposition: 01 Home, Self Care Clinical Impression: Vertigo, Paresthesia Condition: Stable Instructions: ED Vertigo Unspecified, ED Paraesthesias Comments: Fortunately, your MRI look good today. There is no evidence of a serious condition involving your brain or brainstem. The vertigo may be related to your inner ear, which is common. This is a benign process and mainly causes uncomfortable symptoms on occasion. Your numbness may be due to nerve impingement as comes out of your spine or through your shoulder and elbow joints. You can stretch and take anti-inflammatories to help with this. Please follow-up with your doctor for any further concerns. Discharge Date/Time: 05/02/21 13:23
--- NOTE | 2021-05-02 12:46 | MRI Report ---
PROCEDURE: Brain W/O INDICATIONS: R side weakness TECHNIQUE: Noncontrast axial T1 spin echo, axial T2 fast spin echo, sagittal and axial FLAIR, coronal T2 fast sp in echo, axial gradient echo, axial diffusion and ADC through the brain. COMPARISON: CT examinations dated 05/01/2021 FINDINGS: Image quality: Excellent. CSF Spaces: Basal cisterns are patent. No extra-axial fluid collections. Ventricles are normal in size and shape. Brain: No intracranial masses or hemorrhage. Hernández/white matter interface is normal. Brainstem appe ars normal. Diffusion-weighted images demonstrate no acute ischemic insult. No chronic ischemic ins ults. Normal intravascular flow voids are present. Skull and face: Calvarium has normal marrow signal. Orbits appear normal. Sinuses: Sinuses and mastoids are clear. IMPRESSION: No acute intracranial abnormality. No recent infarct. Reviewed by: Ronal Cheney MD on 05/02/2021 11:45 AM [facility] Approved by: Ronal Cheney MD on 05/02/2021 11:45 AM [facility] Station ID: [id number]
[2021-05-02 13:18] VITALS: BP 128/75
== END 2021-05-02 13:23 | disposition home or self-care (01) ==
LOC: ED 08:52
DX: R20.2 Paresthesia of skin (principal); R20.0 Anesthesia of skin; R51.9 Headache, unspecified; R42 Dizziness and giddiness
CPT/HCPCS: 70551; 96372; 99284; A9270

== ENCOUNTER 2021-11-16 08:44 | Outpatient (CLI) | payer OTHER ==
[2021-11-16] MEDS ORDERED: GADOBUTROL 10 MMOL/10 ML VIAL ONE (09:35)
--- NOTE | 2021-11-16 14:14 | MRI Report ---
PROCEDURE: Brain W/WO INDICATIONS: NIPPLE DISCHARGE/PITUITARY GLAND PROTOCOL CONTRAST: IV CONTRAST: Gadavist ml: 9.7 TECHNIQUE: Noncontrast sagittal and axial FLAIR, axial gradient echo, axial diffusion and ADC through the brain. Thin-slice sagittal and coronal T1 spin echo, coronal T2 fast spin echo through the pituitary. Aft er the administration contrast, optional dynamic coronal T1 spin echo, thin-slice coronal and sagitta l T1 spin echo images through the pituitary fossa; axial T1 spin echo with fat saturation through the brain. COMPARISON: Prior brain MRI, 05/02/2021. Correlation is made with prior head CT angiogram, 05/01/2021. FINDINGS: Image quality: Excellent. Pituitary Gland: Along the left lateral aspect of the pituitary, there is a poorly enhancing lesion seen, as on series 1001 image 65 that measures 4 mm. The pituitary gland demonstrates normal bulk and normal signal. The pituitary tissue is partially fla ttened along the floor of the sella turcica, which is considered to be a normal variant. A normal-seda earing posterior pituitary T1 hyperintense bright spot is seen. The pituitary stalk is midline and demonstrates no abnormal enhancement. The optic chiasm and the aime tral forebrain demonstrate an unremarkable appearance. CSF Spaces: Ventricles are normal in size and shape. Basal cisterns are patent. No extra-axial flu id collections. Brain: No intracranial bleeds or mass effects. No abnormal intracranial enhancement. Hernández-white ma tter interface is intact. Diffusion weighted images demonstrate no acute ischemic insults. Brainste m is normal. Normal intravascular flow voids are present. Skull and face: Calvarial marrow is normal in signal. Orbits appear normal. Sinuses: Sinuses and mastoids are clear. IMPRESSION: There is a 4 mm poorly enhancing nodule along the left aspect of the pituitary gland, which is suspic ious for a pituitary microadenoma in this patient with this given history. Reviewed by: Guerrero Camacho MD on 11/16/2021 1:13 PM [facility] Approved by: Guerrero Camacho MD on 11/16/2021 1:13 PM [facility] Station ID: [id number]
[2021-11-17] MEDS ORDERED: GADOBUTROL 10 MMOL/10 ML VIAL IVP ONE (12:27)
== END 2021-11-16 08:45 | disposition home or self-care (01) ==
LOC: DI 08:44
PROVIDERS: ATTEND Student in an Organized Health Care Education/Training Program
DX: N64.52 Nipple discharge (principal); E23.6 Other disorders of pituitary gland
CPT/HCPCS: 70553; A9585